=== PATIENT | female | born 1990 | race Caucasian/White ===

== ENCOUNTER → 2016-12-10 | Outpatient (CLI) | payer OTHER ==
[2016-12-10 14:53] LABS: URINE APPEARANCE CLEAR (CLEAR); URINE BILIRUBIN NEG (NEG); URINE COLOR DK YELLOW; URINE NITRITE NEG (NEG); URINE PH 7.5 (4.5-7.5); URINE SPECIFIC GRAVITY 1.026 (1.000-1.030); UROBILINOGEN NEG (NEG)
[2016-12-10 15:12] LABS: MANUAL MICROSCOPIC REQUIRED? NO; REVIEW REQ? NO
== END | disposition home or self-care (01) ==
LOC: C.LABSPEC 13:48
PROVIDERS: ATTEND Obstetrics & Gynecology
DX: Z34.91 Encounter for supervision of normal pregnancy, unspecified, first trimester (principal)

== ENCOUNTER → 2016-12-18 | Outpatient (CLI) | payer OTHER | END | disposition home or self-care (01) | LOC: C.PAPS 10:07 | PROVIDERS: ATTEND Obstetrics & Gynecology | DX: Z34.91 Encounter for supervision of normal pregnancy, unspecified, first trimester (principal) ==

== ENCOUNTER → 2016-12-18 | Outpatient (CLI) | payer OTHER ==
[2016-12-18 17:57] LABS: BASO % 0.1 %; BASO ABS # 0.01 K/uL (0-0.2); COMPLETE YES; EOS % 0.9 %; HEMATOCRIT 36.7 % (37-47); IG% 0.1 %; LYMPH % 22.6 %; LYMPH ABS # 1.68 K/uL (1.2-3.4); MEAN CELL VOLUME 88.4 fL (80-100); MEAN CORPUSCULAR HEMOGLOBIN 30.4 pg (25-34); MEAN CORPUSCULAR HGB CONC 34.3 g/dl (32-36); MEAN PLATELET VOLUME 10.4 fL (7.4-10.4); MONO % 7.3 %; PLATELET COUNT 220 K/uL (130-400); RED BLOOD COUNT 4.15 M/uL (4.2-5.4); WHITE BLOOD COUNT 7.42 K/uL (4.8-10.8)
[2016-12-22 05:51] LABS: CHLAMYDIA TRACH RNA*** NOT DETECTED (NOT DETECTED); GC (NEIS GONORRHOEAE)RNA** NOT DETECTED (NOT DETECTED)
== END | disposition home or self-care (01) ==
LOC: C.LAB1850 15:28
PROVIDERS: ATTEND Obstetrics & Gynecology
DX: Z34.91 Encounter for supervision of normal pregnancy, unspecified, first trimester (principal)

== ENCOUNTER → 2017-01-27 | Outpatient (CLI) | payer OTHER ==
[2017-01-27 19:52] LABS: GTGD 50 Grams
== END | disposition home or self-care (01) ==
LOC: C.LAB1850 14:23
PROVIDERS: ATTEND Obstetrics & Gynecology
DX: Z34.92 Encounter for supervision of normal pregnancy, unspecified, second trimester (principal)

== ENCOUNTER → 2017-04-20 | Outpatient (CLI) | payer OTHER ==
[2017-04-20 18:16] LABS: URINE APPEARANCE CLEAR (CLEAR); URINE BILIRUBIN NEG (NEG); URINE COLOR YELLOW; URINE EPITHELIAL CELL AUTO >30 /lpf (0-5); URINE NITRITE NEG (NEG); URINE PH 6.5 (4.5-7.5); URINE SPECIFIC GRAVITY 1.019 (1.000-1.030); UROBILINOGEN NEG (NEG)
[2017-04-20 18:17] LABS: MANUAL MICROSCOPIC REQUIRED? NO; REVIEW REQ? NO
== END | disposition home or self-care (01) ==
LOC: C.LABSPEC 17:38
PROVIDERS: ATTEND Obstetrics & Gynecology
DX: Z34.93 Encounter for supervision of normal pregnancy, unspecified, third trimester (principal)

== ENCOUNTER → 2017-05-07 | Outpatient (CLI) | payer BC, OTHER ==
[~2017-05-07] MED LIST: PREN-63; RANI150T3 PO
[2017-05-07 16:33] LABS: HEMATOCRIT 33.8 % (37-47); HEMOGLOBIN 11.4 g/dL (12.0-16.0)
== END | disposition home or self-care (01) ==
LOC: C.LAB1850 14:26
PROVIDERS: ATTEND Obstetrics & Gynecology
DX: Z34.93 Encounter for supervision of normal pregnancy, unspecified, third trimester (principal)

== ENCOUNTER → 2017-06-15 | Outpatient (CLI) | payer BC | END | disposition home or self-care (01) | LOC: C.LABSPEC 13:24 | PROVIDERS: ATTEND Obstetrics & Gynecology | DX: Z34.83 Encounter for supervision of other normal pregnancy, third trimester (principal) ==

== ENCOUNTER 2017-07-11 21:54 | Inpatient (IN) | payer BC ==
[~2017-07-11] VITALS: Ht 162.6 cm; Wt 98.6 kg
[2017-07-20] MEDS ORDERED: LACTATED RINGER'S 1000ML 1,000 ML IV PRN (08:07)
[2017-07-20] MEDS ORDERED: LACTATED RINGER'S 1000ML 500 ML IV PRN ×2 (08:09→11:28)
[2017-07-20] MEDS ORDERED: RANI150T3 PO (08:14)
[2017-07-20] MEDS ORDERED: PREN-63 (08:14)
[2017-07-20] MEDS ORDERED: OXYTOCIN 30 UNITS/500ML NSS IV PRN ×2 (08:15→15:00)
[2017-07-20 08:16] VITALS: Ht 162.6 cm; Wt 98.6 kg
[2017-07-20] MEDS: LACTATED RINGER'S 1000ML 1,000 ML IV SCH ×3 (08:29→12:24)
[2017-07-20 08:38] LABS: HEMATOCRIT 33.2 % (37-47); HEMOGLOBIN 11.5 g/dL (12.0-16.0); MEAN CELL VOLUME 87.1 fL (80-100); MEAN CORPUSCULAR HEMOGLOBIN 30.2 pg (25-34); MEAN CORPUSCULAR HGB CONC 34.6 g/dl (32-36); MEAN PLATELET VOLUME 10.4 fL (7.4-10.4); PLATELET COUNT 193 K/uL (130-400); RED CELL DISTRIBUTION WIDTH CV 13.4 % (11.5-14.5); RED CELL DISTRIBUTION WIDTH SD 42.9 fL (36.4-46.3); WHITE BLOOD COUNT 9.05 K/uL (4.8-10.8)
[2017-07-20] MEDS ORDERED: BUPIVACAINE 0.25% 30 ML VIAL ONE (10:36)
[2017-07-20] MEDS ORDERED: EpHEDrine SULFATE INJ 50 MG/ML AMP ONE (10:37)
[2017-07-20] MEDS ORDERED: FENTANYL CITRATE INJ 50 MCG/1 ML 2 ML VIAL ONE (10:37)
[2017-07-20] MEDS ORDERED: FENTANYL 2MCG/ML ROPIV 1.25MG/ML 100ML BAG EPI ONE (10:37)
[2017-07-20] MEDS ORDERED: NALOXONE HCL INJ 1 MG in SODIUM CHLORIDE 0.9% 1000ML 1,000 ML IV PRN ×4 (11:28)
[2017-07-20] MEDS ORDERED: PROMETHAZINE HCL INJ 25 MG in SODIUM CHLORIDE 0.9% 50ML 50 ML IV PRN (11:30)
[2017-07-20] MEDS ORDERED: ONDANSETRON INJ 2 MG/ML 2 ML VIAL IV PRN (11:30)
[2017-07-20] MEDS ORDERED: EpHEDrine SULFATE INJ 50 MG/ML AMP IV PRN (11:30)
[2017-07-20] MEDS ORDERED: NALOXONE HCL INJ 0.4 MG/1 ML VIAL/CARP IV PRN (11:30)
[2017-07-20] MEDS ORDERED: FENTANYL 2MCG/ML ROPIV 1.25MG/ML 100ML BAG EPI PRN (11:30)
[2017-07-20] MEDS ORDERED: NALBUPHINE HCL INJ 10 MG/ML AMP IV PRN (11:30)
[2017-07-20] MEDS ORDERED: METOCLOPRAMIDE HCL INJ 20 MG in SODIUM CHLORIDE 0.9% 50ML 50 ML IV PRN (11:30)
[2017-07-20] MEDS ORDERED: DiphenhydrAMINE HCL 50 MG/ML VIAL IV PRN (11:30)
[2017-07-20] MEDS ORDERED: BENZOCAINE 20% AER SPR 82.5 GM CAN EXT PRN (15:00)
[2017-07-20] MEDS ORDERED: ACETAMINOPHEN 325 MG TAB PO PRN (15:00)
[2017-07-20] MEDS ORDERED: DIPHTHERIA/TETANUS/PERTUSSIS 0.5 ML SYR/VIAL IM. ONE (15:00)
[2017-07-20] MEDS ORDERED: LANOLIN OINT EXT PRN (15:00)
[2017-07-20] MEDS ORDERED: VARICELLA VIRUS VACCINE LIVE 1 VIAL SQ. ONE (15:00)
[2017-07-20] MEDS ORDERED: HYDROCORTISONE ACETATE 25 MG SUPP PR PRN (15:00)
[2017-07-20] MEDS ORDERED: IBUPROFEN 600 MG TAB PO PRN (15:00)
[2017-07-20] MEDS ORDERED: ACETAMINOPHEN/CODEINE 300/30MG TAB PO PRN ×2 (15:00)
[2017-07-20] MEDS ORDERED: SUPERCREAM 0.870 % 15GM JAR EXT PRN (15:00)
--- NOTE | 2017-07-20 15:03 | DELIVERY SUMMARY ---
DATE OF OPERATION: 07/20/2017 FINDINGS: Viable female with Apgars of 8 and 9. Baby delivered over a midline second degree laceration. Arterial and venous cord gases pending. Nuchal cord x2 reduced on the perineum. Cord gases and cord blood samples obtained. Placenta delivered spontaneously. Laceration repaired with interrupted 4-0 Vicryl. ESTIMATED BLOOD LOSS: 300 mL. LABOR NOTE: The patient is a 27-year-old 2, para 1 with an EDC of 11 July at 41 plus weeks gestational age, who was admitted today for a postdates induction. The patient then had a benign course. Blood type 0+, antibody negative, rubella immune, hepatitis B negative. She had normal Glucola x2 and a negative third trimester beta strep culture. Upon admission, the patient was 2-3 cm dilated, 50% effaced and minus 2 station. Tracing was category 1. The patient was started on Pitocin per induction protocol. Artificial rupture of membranes with clear fluid. Following this, the patient began to contract in a regular fashion. She became uncomfortable. Anesthesia was consulted and an epidural was placed. Tracing was category 2 with some decelerations with contractions, but good variability and accelerations. The patient progressed to full dilatation, but she had no sensation to push. Her epidural was markedly decreased and then an hour later, she began her second stage, she pushed for approximately 10 minutes delivering the viable female . Nuchal cord x2 reduced on the perineum. Baby was delivered. Cord was clamped and cut. Cord gases and cord blood samples obtained. Placenta delivered spontaneously. Midline laceration was repaired with interrupted 4-0 Vicryl figure of eight sutures x2. Estimated blood loss was 300 mL. I attest to the content of the Intraoperative Record and any orders documented therein. Any exception s are noted below.
--- NOTE | 2017-07-20 17:08 | Anesthesia Procedure Note ---
Anesthesia Epidural Removal Nt Date & Time Jul 20, 2017 at 17:08 Notes Mental Status: alert / awake / arousable, participated in evaluation Nausea / Vomiting: adequately controlled Pain: adequately controlled Airway Patency, RR, SpO2: stable & adequate BP & HR: stable & adequate Hydration State: stable & adequate Neuraxial Anesthesia: was administered Anesthetic Complications: no major complications apparent, pt satisfied with anesthetic care Epidural: removed without complications, with tip intact
[2017-07-20 18:00] VITALS: BP 104/64; PULSE 97; TEMP 37.7; O2SAT 100
[2017-07-20] MEDS ORDERED: RANITIDINE HCL 150 MG TAB PO SCH (20:00)
[2017-07-20 20:30] VITALS: BP 106/65; PULSE 92; TEMP 36.4; O2SAT 100
[2017-07-20] MEDS: DOCUSATE SODIUM 100 MG CAP PO SCH (20:34)
[2017-07-20 23:20] VITALS: BP 111/64; PULSE 91; TEMP 36.6; O2SAT 99
[2017-07-21 03:15] VITALS: BP 118/70; PULSE 72; TEMP 36.5; O2SAT 99
--- NOTE | 2017-07-21 06:41 | Progress Note ---
Subjective Jul 21, 2017. Subjective conversation w/ patient, physical exam Ambulation: ambulating normally Voiding: no voiding problems Passing Gas: Yes Diet Tolerance: Regular Diet Lochia: Moderate Feeding Type: Breast Feeding Pain: 2/10, well controlled Comment: pt seen and assessed at bedside today; no acute events overnight Review of Systems Constitutional: No fever, No chills Respiratory: No cough, No shortness of breath Cardiac: No chest pain, No edema Abdomen: No nausea, No vomiting Female : No dysuria no headaches or calf pain Objective Vital Signs Date Time Temp Pulse Resp B/P (MAP) Pulse Ox O2 Delivery O2 Flow Rate FiO2 07/21/17 03:15 36.5 72 18 118/70 (86) 99 Room Air 07/20/17 23:20 99 Room Air 07/20/17 23:20 36.6 91 18 111/64 (80) 99 Room Air 07/20/17 20:30 36.4 92 18 106/65 (79) 100 Room Air 07/20/17 18:00 37.7 97 18 104/64 (77) 100 Room Air 07/20/17 18:00 Room Air Physical Exam General Appearance: WELL-APPEARING, WD/WN, NO APPARENT DISTRESS Respiratory/Chest: chest non-tender, lungs clear, normal breath sounds Cardiovascular: regular rate, rhythm, no edema, no murmur Abdomen: normal bowel sounds, non tender, soft Fundus: Firm, Non-Tender, Relation to Umbilicus (3-4 below) Extremities: normal range of motion, non-tender, normal inspection, no pedal edema, no calf tenderness Laboratory Results Last 24 Hours Test 07/20/17 08:22 07/21/17 04:44 White Blood Count 9.05 K/uL Red Blood Count 3.81 M/uL Hemoglobin 11.5 g/dL Hematocrit 33.2 % Mean Corpuscular Volume 87.1 fL Mean Corpuscular Hemoglobin 30.2 pg Mean Corpuscular Hemoglobin Concent 34.6 g/dl RDW Standard Deviation 42.9 fL RDW Coefficient of Variation 13.4 % Platelet Count 193 K/uL Mean Platelet Volume 10.4 fL Medications Current Inpatient Medications Medications (Trade) Dose Ordered Sig/Zac Route Start Time Stop Time Status Last Admin Dose Admin Oxytocin (Pitocin IV) 30 units UD PRN IV 07/20/17 15:00 08/19/17 14:59 Benzocaine (Dermoplast Aero Spr) 1 appln PRN PRN EXT 07/20/17 15:00 08/19/17 14:59 07/20/17 20:56 82.5 APPLN Cocaine HCl (Supercream 0.870% Cr) BID PRN EXT 07/20/17 15:00 08/03/17 14:59 07/20/17 21:47 15 GM Hydrocortisone Acetate (Anusol Hc Supp) 25 mg BID PRN TX 07/20/17 15:00 08/19/17 14:59 Lanolin (Lanolin Oint) PRN PRN EXT 07/20/17 15:00 08/19/17 14:59 Prenat Multivit/ Chair Caner/Iron/Folic Ac ( Vitamin Tab) 1 tab DAILY PO 07/21/17 08:00 08/20/17 07:59 Ibuprofen (Motrin Tab) 600 mg Q4H PRN PO 07/20/17 15:00 08/19/17 14:59 07/20/17 23:06 600 MG Acetaminophen (Tylenol Tab) 650 mg Q6H PRN PO 07/20/17 15:00 08/19/17 14:59 Acetaminophen/ Codeine Phosphate (Tylenol w/ Codeine #3 Tab) 1 tab Q4H PRN PO 07/20/17 15:00 08/19/17 14:59 Acetaminophen/ Codeine Phosphate (Tylenol w/ Codeine #3 Tab) 2 tab Q4H PRN PO 07/20/17 15:00 08/19/17 14:59 Docusate Sodium (coLACE CAP) 100 mg BID PO 07/20/17 20:00 08/19/17 19:59 07/20/17 20:34 100 MG Ferrous Sulfate (Feosol Tab) 325 mg DAILY PO 07/21/17 08:00 08/20/17 07:59 Ranitidine HCl (zANTac TAB) 150 mg BID PO 07/20/17 20:00 08/19/17 19:59 07/20/17 20:34 150 MG Assessment and Plan Post- Day#: 1 Continue Routine Care: 27yo F PPD s/p pt doing well clinically Continue routine care Encourage ambulation and breast feeding Pain control prn Pt eager for discharge Discharge instructions reviewed in event she goes home today Resident Physician Supervision Note: I interviewed and examined the patient. Discussed with Dr. Worley and agree with findings and plan as documented in the note. Any exceptions or clarifications are listed here: Pt desires d/c, instructions given Documented By: Kana Dyer Resident Tracking Resident Involvement: Resident Care Provided Care Provided: OB Delivery
--- NOTE | 2017-07-21 06:42 | Discharge Instructions ---
Discharge Instructions Date of Service Jul 21, 2017. Admission Reason for Admission: Induction Discharge Discharge Diagnosis / Problem: s/p Discharge Goals Goal(s): Routine recovery after delivery Medications Continue Dispensed Medications: supercream, dermaplast, tucks, lansinoh Activity Recommendations Activity Limitations: per Instructions/Follow-up section . Instructions / Follow-Up Instructions / Follow-Up ACTIVITY RECOMMENDATIONS: * Gradual return to full activity over the next 2-3 weeks. * No lifting - nothing heavier than baby over the next 2-3 weeks. * Do not engage in vigorous exercise, sexual activity or sports until cleared by your physician. * Do not drive or operate any motorized equipment until cleared by your physician. * You may shower/bathe daily. MEDICATIONS: For discomfort or pain, you may use Acetaminophen (Tylenol), Ibuprofen (Advil), or Naproxen (Aleve) following the package directions. For constipation you may use Colace following the package directions. BREAST CARE: If you are not breast feeding: * Wear a supportive bra 24 hours a day for one to two weeks. * Avoid stimulating your breasts and nipples as much as possible during the first few weeks after delivery. * When taking a shower, have the warm water hit your back, not breasts. * When your breasts feel full, apply ice packs. Usually three to four times a day helps ease the discomfort. * Take a mild pain medication (Tylenol / Motrin) when you are uncomfortable. If breast feeding: * Use breast milk to lubricate nipples. Lansinoh cream may be used for sore nipples. You do not need to remove cream prior to breast feeding. If using a different brand of cream, check the label for directions regarding removal of cream prior to nursing. * Wear a supportive bra. * If having problems with breasts or breast feeding, call a bridal stylist sales consultant or your health care provider. EPISIOTOMY CARE: After delivery, if you have an episiotomy (stitches), the following steps will ease discomfort and aid healing. * For the first 24 hours after delivery, place ice packs next to your episiotomy to help reduce swelling. * After the first 24 hour-period, sitz baths, either portable or in the tub, are suggested. A shower with a shower arm sprayed over the episiotomy may be comforting. * Joanne care should be done after each voiding and bowel movement. Squirt warm water from a plastic bottle over the perineum (region of the body between the anus and urinary opening) and pat dry. * Use Dermoplast to ease discomfort. Shake container. [place] directly over the episiotomy. Place a Tucks on a clean sanitary pad next to your episiotomy. SPECIAL CARE INSTRUCTIONS: When you are discharged from the hospital, it is important for you to follow the instructions listed below: * During the first week at home, you should be able to care for yourself and your baby. In addition, the usual light household activities are encouraged. * Limit your activities to the way you feel. Do not try to clean the house or move furniture. Be sensible. * If you actively engage in sports and have done so up until the time of your delivery, you may resume these activities as soon as you feel able. This may take up to one month or even longer. Use good judgment. * Continue to take your vitamins for at least six weeks after the of your baby. * Your diet need not be limited unless you were on a special diet before your delivery. Breast-feeding mothers need around 2500 calories per day and at least 64-80 ounces of fluid per day (8 to 10 glasses). * You should eat foods from the four major food groups. Crash diets or fad diets are to be avoided. Eating lean meats, fresh fruits and vegetables, low-fat dairy products, high fiber foods and a regular exercise program, will help you get back to your pre- weight without putting your health at risk. * Constipation is sometimes a problem after delivery. Take a mild laxative as needed. If breast feeding, Milk of Magnesia is acceptable to use. You may use a suppository or Fleets enema if no episiotomy. * A daily shower or tub bath is suggested. Be sure to thoroughly and gently dry the perineum. * A bloody vaginal discharge will usually continue until around four weeks post . A small amount of bleeding may continue for as long as six weeks. Vaginal discharge changes from the bright red bleeding after delivery to pink then brownish and finally yellowish-pink before becoming white and disappearing. * Bleeding may increase with activity. Your first period may come in 4-8 weeks. If you are breast feeding, your period may be delayed even longer. * [place] (sex) can begin whenever both you and your partner feel comfortable and do not have any form of genital infection. It is recommended that you wait at least six weeks for internal and external healing to occur. If you have questions, please talk to your health care practitioner. A condom should be used to prevent infection and . * Foreplay, gentle intercourse and lubrication is very important the first several times to prevent pain. A water-based lubricant such as K-Y jelly or Astroglide may be used. * If you have RH negative blood and your baby is RH positive, you will receive RHOGAM by injection prior to discharge. The nurse will give you a card to keep with you that has the date and place that you received RHOGAM after delivery. * During your care, you had a Rubella screen done to check for the presence of rubella antibodies in your blood. If your test was negative, you will receive a Rubella vaccine prior to discharge. This vaccine may cause a fever, soreness at the injection site and flu-like symptoms. If these symptoms persist, notify your health care practitioner. is not advised for one month after a Rubella vaccine. * Verbalizes understanding of car seat law as reviewed with patient nursing. * Car Seat hand-out given and reviewed with patient by nursing. * Shaken baby information reviewed with patient by nursing. Call you doctor if: * Heavy bleeding (saturating several pads an hour) or passing clots the size of your fist. * A fever >101 degrees F (38.3 degrees C) on two occasions four hours apart and /or chills. * Unusual pain in the pelvic or vaginal areas. * "Baby Blues" lasting longer than two weeks. If you have any questions or concerns, call your health care practitioner at . FOLLOW UP VISIT: * Please call the office at to schedule a 6 week examination. It is important you keep this appointment. It is important for you to make arrangements for either yearly or twice yearly check-ups thereafter. Current Hospital Diet Patient's current hospital diet: Regular OB Diet Discharge Diet Recommended Diet: Regular OB Diet Pending Studies Studies pending at discharge: no Medical Emergencies . Who to Call and When: Medical Emergencies: If at any time you feel your situation is an emergency, please call [phone] immediately. . Non-Emergent Contact Non-Emergency issues call your: Electrostatic Powder Coating Technician . . "Provider Documentation" section prepared by Neha Worley. .
[2017-07-21 07:04] VITALS: BP 103/64; PULSE 86; TEMP 36.7; O2SAT 98
[2017-07-21 07:37] LABS: HEMATOCRIT 30.8 % (37-47); HEMOGLOBIN 10.3 g/dL (12.0-16.0)
[2017-07-21] MEDS ORDERED: PRENATAL VITAMIN TAB PO SCH (08:00)
[2017-07-21] MEDS ORDERED: FERROUS SULFATE 325 MG TAB PO SCH (08:00)
[2017-07-21] MEDS: DOCUSATE SODIUM 100 MG CAP PO SCH (08:18)
[2017-07-21 12:10] VITALS: BP 116/75; PULSE 77; TEMP 36.7
[2017-07-21 15:10] VITALS: BP 106/70; PULSE 83; TEMP 36.5
[2017-07-21 17:20] VITALS: BP_DIAS 70; PULSE 83; TEMP 36.5
== END 2017-07-21 17:20 | disposition home or self-care (01) | DRG 775 ==
LOC: C.LD 07-20 07:32 → C.OBG 07-20 17:59
PROVIDERS: ADMIT Obstetrics & Gynecology; ATTEND Obstetrics & Gynecology
PROC: 3E033VJ Introduction of Other Hormone into Peripheral Vein, Percutaneous Approach (ICD-10-PCS; principal; 2017-07-20)
PROC: 10E0XZZ Delivery of Products of Conception, External Approach (ICD-10-PCS; principal; 2017-07-20)
PROC: 0KQM0ZZ Repair Perineum Muscle, Open Approach (ICD-10-PCS; principal; 2017-07-20)
PROC: 10907ZC Drainage of Amniotic Fluid, Therapeutic from Products of Conception, Via Natural or Artificial Opening (ICD-10-PCS; principal; 2017-07-20)
DX: O48.0 Post-term pregnancy (principal); O70.1 Second degree perineal laceration during delivery; O76 Abnormality in fetal heart rate and rhythm complicating labor and delivery; O69.81X0 Labor and delivery complicated by cord around neck, without compression, not applicable or unspecified; O99.62 Diseases of the digestive system complicating childbirth; K21.9 Gastro-esophageal reflux disease without esophagitis; Z37.0 Single live birth; Z3A.41 41 weeks gestation of pregnancy; Z79.899 Other long term (current) drug therapy

== ENCOUNTER 2019-12-22 07:38 | Inpatient (IN) ==
[2019-12-22] MEDS ORDERED: OXYTOCIN 30 UNITS/500 ML BAG IV PRN ×2 (07:52)
[2019-12-22] MEDS ORDERED: PENICILLIN G POTASSIUM 6 MU in DEXTROSE 5% 250 ML IV STA (07:54)
--- NOTE | 2019-12-22 08:04 | Labor Progress Brief Note ---
Date of Service December 22, 2019 Subjective Crampy overnight. SROM occurred here in the room just minutes ago! Clear fluid. +FM Assessment & Plan (1) Prolonged , antepartum: GBS positive, induction of labor with pitocin. (2) Carrier of group B Streptococcus: Admission and Anticipated Discharge Date Admission Date: December 22, 2019 Physical Exam Physical Exam: 350/-2 soft post SROM copious clear. FHT Cat 1 Jessie quiet Results & Data ([facility]) Vital Signs (Past 12 Hours) Vital Signs Pulse BP 12/22/19 07:50 113 H 121/75 Coding Level of Care Code None Diagnoses Prolonged , antepartum O48.1 Carrier of group B Streptococcus Z22.330
[2019-12-22 08:16] LABS: Hematocrit (blood only) 31.9 % (37-47); Hemoglobin 10.7 g/dL (12.0-16.0); Mean Corpuscular Hemoglobin 30.1 pg (25-34); Mean Corpuscular Volume 89.6 fL (80-100); Platelet Count 203 K/uL (130-400); RDW Coefficient of Variation 13.2 % (11.5-14.5); RDW Standard Deviation 43.3 fL (36.4-46.3); Red Blood Count 3.56 M/uL (4.2-5.4); White Blood Count 10.55 K/uL (4.8-10.8)
[2019-12-22] MEDS: LACTATED RINGER'S 1,000 ML IV PRN ×2 (08:23→10:32)
[2019-12-22 08:24] LABS: Mean Corpuscular Hgb Conc 33.5 g/dL (32-36)
--- NOTE | 2019-12-22 08:36 | History & Physical Report ---
Date of Service December 22, 2019 Assessment & Plan (1) Encounter for induction of labor: PNL: Rh pos, RI, GBS + carrier status, COVID neg Admit, labs, start IV Epidural when desired; anesthesiology consult placed Proceed with induction of labor per Pitocin augmentation protocol. Anticipate (2) Carrier of group B Streptococcus: Will start penicillin IV for GBS carrier status Admission and Anticipated Discharge Date Admission Date: December 22, 2019 History of Present Illness Primary Care Provider: Shannan Ferraro DO Ursula De La Cruz is a 29 y/o female currently at 41 WGA with an SIMONA 12/15/19 as determined by LMP who is here for IOL due to postdates. Her was essentially uncomplicated; pt is GBS carrier (determined by urine culture). It is noted that upon arrival, pt went to the bathroom and then was getting into bed when she had spontaneous rom. + irregular contractions; + movement; + bloody show Had regular appointments with OB. Blood type: O+ Antibody screen: neg Labs 05/27/19 Rubella: immune VDRL/RPR: NR Gonorrhea: neg Chlamydia: neg HIV: neg HbSAg: neg GBS + CARRIER STATUS per urine culture COVID-19 negative 12/02/19, repeat negative 12/14/19 Other screens: panorama/cf/sma/quad declined Allergies Allergy/AdvReac Type Severity Reaction Status Date / Time No Known Allergies Allergy Verified 12/21/19 13:58 Home Medications Home Medications Medication Instructions Recorded Confirmed Type [id number] 1 tab PO DAILY 12/15/19 12/22/19 History [ 1 + Iron] Patient History Medical History History of varicella Prolonged , antepartum Surgical History S/P cholecystectomy Family History Grandfather (Paternal) Cardiac disorder Grandmother (Paternal) Cardiac disorder Father Hypertension Hypercholesterolemia Other Thyroid disease Social History (Updated 05/20/19 @ 11:15 by Elisa Duncan) Smoking Status: Never smoker Hx Alcohol Use: No Hx Substance Use: No Preferred Language: Kiswahili Beliefs That Will Affect Care: None marital status: marital status details: Kuldip De La Cruz (29) [phone] Current Living Situation: Family Current Living Situation Comment: and 2 children current occupational status: employed current occupation: RN [employer] Other Information That Helps Us Care for You: No Feels Safe at Home: Yes Safety Concerns: Feels Safe At This Time OB History G#1: Delivered at term on 12/16/14, male, 8#5oz., [facility] G[facility]2: Delivered at 41 weeks on 07/20/18, female, 8#8oz, with epidural at [facility] with Dr. Dyer Review of Systems Denies fever or chills. Denies shortness of breath or cough. Denies chest pain. Denies breast pain. + nausea (persistent throughout ) Denies dysuria or hematuria. Denies leg pain or leg swelling. Denies headache or changes in vision. Physical Exam Physical Exam: General: Alert, oriented. No acute distress. Cardiac: Regular rate and rhythm, no murmurs/rubs/gallops. Respiratory: Clear to auscultation bilaterally a/p, no wheezes/rales/rhonchi. No increased work of breathing. Symmetrical chest rise. No respiratory distress. Abdomen: Gravid. Vertex position. + heart tones. - palpable contractions. EFW 7-8# Pelvic: Dilation 3cm; Effacement 50%; Station -2, soft, posterior per Dr. Canales External FHT and external uterine monitors used; Category I tracing; moderate FHT variability. Lower Extremities: No lower extremity edema or swelling. No deep calf pain. Steven's negative bilaterally Results & Data ([facility]) Vital Signs (Past 12 Hours) Vital Signs Temp Pulse Resp BP 12/22/19 08:29 87 114/64 12/22/19 07:52 37.0 C 20 12/22/19 07:50 113 H 121/75 Laboratory Results Labs at admission today at 0803 H.7 Hct: 31.9 WBC: 10.55 Plt: 203 Code Status & VTE Plan VTE Prophylaxis Plan VTE Prophylaxis will be ordered: Yes
[2019-12-22] MEDS ORDERED: BUPIVACAINE 0.25% 30 ML VIAL ONE (09:41)
[2019-12-22] MEDS ORDERED: ePHEDrine sulfate 50 MG/ML AMP ONE (09:41)
[2019-12-22] MEDS ORDERED: fentaNYL citrate 100 MCG/2 ML VIAL ONE (09:42)
[2019-12-22] MEDS ORDERED: fentaNYL 2MCG/ML ROPIV 1.25MG/ML 100 ML BAG EPI ONE (09:42)
[2019-12-22] MEDS ORDERED: NALOXONE HCL 1 MG in SODIUM CHLORIDE 0.9% 1000ML 1,000 ML IV PRN (09:55)
[2019-12-22] MEDS ORDERED: ePHEDrine sulfate 50 MG/ML AMP IV PRN (09:55)
[2019-12-22] MEDS ORDERED: NALOXONE HCL 0.4 MG/1 ML VIAL/CARP IV PRN (09:55)
[2019-12-22] MEDS ORDERED: DiphenhydrAMINE HCL 50 MG/ML VIAL IV PRN (09:55)
[2019-12-22] MEDS ORDERED: ONDANSETRON INJ 2 MG/ML 2 ML VIAL IV PRN (09:55)
[2019-12-22] MEDS ORDERED: fentaNYL 2MCG/ML ROPIV 1.25MG/ML 100 ML BAG EPI PRN (09:55)
--- NOTE | 2019-12-22 09:59 | Anesthesiology Consultation ---
Date of Service December 22, 2019 Covid 19 negative on 12/14/19. Assessment & Plan Chart Review Chart Review: Patient NOT seen in Pre Admission Testing and Acceptable Risk for Labor Epidural Consults Requested none ASA ASA2 Proposed Anesthesia Anesthesia Type: Labor Epidural and CSE Risk / Benefits Reviewed With: PT / POA / Parent / Guardian, Accepts Plan and Informed Consent Obtained History Height/Weight Height: 5 ft 5 in Weight: 98.883 kg Allergies Allergy/AdvReac Type Severity Reaction Status Date / Time No Known Allergies Allergy Verified 12/21/19 13:58 Medications Home Medications Medication Instructions Recorded Confirmed Last Taken [id number] 1 tab PO DAILY 12/15/19 12/22/19 12/22/19 07:00 [ 1 + Iron] Active Medications Generic Name Dose Route Start Last Admin Trade Name Freq PRN Reason Stop Dose Admin Lactated Ringer's 1,000 mls @ 125 mls/hr 12/22/19 07:52 12/22/19 09:35 Lr IV 12/24/19 07:51 999 mls/hr .Q8H PRN Infusion L&D Protocol Protocol Oxytocin 30 units in 500 mls @ 5 mls/hr 12/22/19 07:52 12/22/19 09:31 Pitocin IV 12/24/19 07:51 0.3 units/hr .Q24H PRN 5 mls/hr Labor Induction/Augmentation Titration Protocol 0.3 UNITS/HR NPO Date Last Intake of Fluids: 12/22/19 Time Last Intake of Fluids: 06:00 Date Last Intake of Solids: 12/22/19 Time Last Intake of Solids: 06:00 Past Medical History Medical History History of varicella Prolonged , antepartum Exercise / Class Metabolic Activity II 4-5 Yardwork/Stairs/Walk up hill Past Family History Family History Grandfather (Paternal) Cardiac disorder Grandmother (Paternal) Cardiac disorder Father Hypertension Hypercholesterolemia Other Thyroid disease Past Surgical History Surgical History S/P cholecystectomy Past Anesthesia History No Hx of Anesthesia Complications and No Family Hx of Anesthesia Complications History of PONV No Hx of PONV and No Hx of Motion Sickness Social History Smoking Status: Never smoker Hx Alcohol Use: No Hx Substance Use: No Review of Systems no chest pain or sob Physical Exam Vital Signs Last Vital Signs Temp 37.0 C 12/22/19 07:52 Pulse 89 12/22/19 09:55 Resp 20 12/22/19 07:52 BP 124/85 12/22/19 09:55 Pulse Ox 98 12/22/19 09:55 ENMT Mouth: no TMJ abnormality Thyromental Distance: > or= 3.5 Finger Breadths Mallampati Class: II Neck normal visual inspection Respiratory normal respiratory effort Auscultation: lungs clear to auscultation bilaterally Cardiovascular Rate/Rhythm: regular rate and regular rhythm Musculoskeletal Spine: normal cervical ROM Neurologic moves all extremities Psychiatric Orientation: alert and oriented x 3 Testing Laboratory Results 12/22/19 08:03
[2019-12-22] MEDS ORDERED: ACETAMINOPHEN 325 MG TAB PO PRN (11:39)
--- NOTE | 2019-12-22 11:40 | Delivery Summary ---
Vaginal Delivery Summary Date of Service December 22, 2019 Vaginal Delivery Summary DIAGNOSES: 1. [place] intrauterine at 41w0d gestation. 2. Induction of labor. 3. Group B Streptococcus Pos. PROCEDURE: Spontaneous vaginal delivery and repair of laceration. SURGEON: Abigail Canales MD. DAIRY POWDER MIXER OPERATOR: None. ESTIMATED BLOOD LOSS: 250 mL. COMPLICATIONS: None. PLACENTA: Spontaneous and intact with a 3-vessel cord. DISPOSITION: Stable to labor and delivery. DESCRIPTION: The patient pushed well and brought the head to in OA position. The 's head was allowed to deliver with contraction force and no further active pushing, with the perineum protected during this time. The shoulders delivered easily with a maternal pushing effort. There was no nuchal cord. The right shoulder was anterior. The shoulders and body delivered without any difficulty, and the infant was placed on the maternal abdomen. It was vigorous and moving all extremities, and making respiratory efforts. The cord was doubly clamped by the MD and then cut by the FOB. The placenta delivered spontaneously and was noted to be intact and with a 3VC. The cervix, vagina and perineum were examined and were found to be without defect requiring repair. The fundus was firm and lochia minimal immediately after delivery.
[2019-12-22] MEDS ORDERED: PENICILLIN G POTASSIUM 3 MU in DEXTROSE 5% 100 ML IV PRN (12:00)
[2019-12-22] MEDS ORDERED: OXYCODONE/ACETAMINOPHEN 5mg/325mg TAB PO PRN (12:12)
[2019-12-22] MEDS ORDERED: HYDROCORTISONE ACETATE 25 MG SUPP PR PRN (12:12)
[2019-12-22] MEDS ORDERED: DIPHTHERIA/TETANUS/PERTUSSIS 0.5 ML SYR/VIAL IM ONE (12:12)
[2019-12-22] MEDS ORDERED: SUPERCREAM 0.870% 15 GM JAR EXT PRN (12:12)
[2019-12-22] MEDS ORDERED: BENZOCAINE 20% AER SPR 82.5 GM CAN EXT PRN (12:12)
[2019-12-22] MEDS ORDERED: bisacodyL 10 MG SUPP PR PRN (12:12)
[2019-12-22] MEDS: IBUPROFEN 600 MG TAB PO PRN ×2 (13:13→17:50)
--- NOTE | 2019-12-22 13:16 | Anesthesia Procedure Note ---
Date of Service December 22, 2019 Anesthesia Post Epidural Note Vital Signs Vital Signs: Temp Pulse Resp BP Pulse Ox 36.9 C 64 20 130/63 98 12/22/19 10:31 12/22/19 13:04 12/22/19 11:46 12/22/19 13:04 12/22/19 11:20 Notes Mental Status: alert / awake / arousable and participated in evaluation Nausea / Vomiting: adequately controlled Pain: adequately controlled Airway Patency, RR, SpO2: stable & adequate BP & HR: stable & adequate Hydration State: stable & adequate Neuraxial Anesthesia: was administered and sensory block is resolving Anesthetic Complications: no major complications apparent and Pt Satisfied with anesthetic care Epidural: Removed without complications and With tip intact
[2019-12-22] MEDS ORDERED: OXYTOCIN 20 UNITS in LACTATED RINGER'S 1,000 ML IV SCH (14:15)
[2019-12-22] MEDS: DOCUSATE SODIUM 100 MG CAP PO SCH (21:10)
--- NOTE | 2019-12-23 06:15 | Obstetrical Progress Note ---
Date of Service <Shannan Malave DO - Last Filed: 12/23/19 07:32> December 23, 2019 Assessment & Plan <Shannan Malave DO - Last Filed: 12/23/19 07:32> (1) Normal course: - PNL: Rh pos, RI, GBS + carrier status, COVID neg -- Pt delivered before being adequately treated with penicillin. Will continue to monitor pt for 48 hours post . - Feels well today. Eating well, voiding well, ambulating well. - Pain well controlled with ibuprofen 600mg Q4H PRN - Routine care -- OOB, ambulation, diet progression as tolerated - After discharge will have 6 week follow-up with Dr. Canales. - Plan for d/c home tomorrow. (2) Carrier of group B Streptococcus: see above Subjective <Shannan Malave DO - Last Filed: 12/23/19 07:32> Ursula De La Cruz is a 29 y/o female who is PPD #1 following IOL (due to postdates), epidural, and at 41 weeks. She reports feeling well overall this morning. Minimal abdominal cramping and 0/10 pain well managed on analgesics. Voiding without dysuria or difficulty. Tolerating meals overnight without nausea or vomiting. Patient has been able to ambulate some. - passing gas and - bowel movement. Has persistent lochia with some improvement this morning. Currently . Review of Systems Denies fever or chills. Denies shortness of breath or cough. Denies chest pain. Denies breast pain. Denies dysuria. Denies leg pain or leg swelling. Denies headache or changes in vision. Physical Exam <Shannan Malave DO - Last Filed: 12/23/19 07:32> General: Alert, oriented. No acute distress. Cardiac: Regular rate and rhythm. No murmurs. Respiratory: Clear to auscultation bilaterally a/p, no wheezes/rales/rhonchi. No increased work of breathing. Symmetrical chest rise. No respiratory distress. Abdomen: Soft, nontender, nondistended. Bowel sounds present. Uterus: Uterine fundus firm, palpable 2 cm below umbilicus. Lower Extremities: No lower extremity edema or swelling. No deep calf pain. Steven's negative bilaterally. Results & Data ([facility]) <Shannan Malave DO - Last Filed: 12/23/19 07:32> Vital Signs (Past 12 Hours) Vital Signs Temp Pulse Resp BP Pulse Ox 12/23/19 03:05 37.3 C 70 16 101/65 99 12/22/19 23:40 36.7 C 61 16 101/65 97 12/22/19 19:15 36.8 C 64 18 106/67 Laboratory Results H/H this morning at 0625: 10.2/29.7 <Abigail Canales MD - Last Filed: 12/23/19 07:44> Co-Signing Physician Notes I have reviewed the resident's note and examined the patient myself, and agree with the note above.
[2019-12-23 06:46] LABS: Hematocrit (blood only) 29.7 % (37-47); Hemoglobin 10.2 g/dL (12.0-16.0); Mean Corpuscular Hemoglobin 30.3 pg (25-34); Mean Corpuscular Hgb Conc 34.3 g/dL (32-36); Mean Corpuscular Volume 88.1 fL (80-100); Mean Platelet Volume 10.9 fL (7.4-10.4); Platelet Count 166 K/uL (130-400); RDW Coefficient of Variation 13.1 % (11.5-14.5); RDW Standard Deviation 42.5 fL (36.4-46.3); Red Blood Count 3.37 M/uL (4.2-5.4); White Blood Count 9.24 K/uL (4.8-10.8)
[2019-12-23] MEDS: PRENATAL VITAMIN 1 TAB PO SCH (07:56)
[2019-12-23] MEDS: DOCUSATE SODIUM 100 MG CAP PO SCH ×2 (07:56→20:36)
[2019-12-23] MEDS ORDERED: bisacodyL 5 MG TABEC PO SCH (20:00)
--- NOTE | 2019-12-24 06:41 | Obstetrical Progress Note ---
Date of Service <Shannan Malave DO - Last Filed: 12/24/19 06:41> December 24, 2019 Assessment & Plan <Shannan Malave DO - Last Filed: 12/24/19 06:41> (1) Normal course: - PNL: Rh pos, RI, GBS positive carrier, COVID neg - Feels well today. Eating well, voiding well, ambulating well. - Pain well controlled with ibuprofen 600mg Q4H PRN - Routine care -- OOB, ambulation, diet progression as tolerated - After discharge will have 6 week follow-up with Dr. Canales. - Plan for d/c home today. Subjective <Shannan Malave DO - Last Filed: 12/24/19 06:41> Ursula De La Cruz is a 29 y/o female who is PPD #2 following with epidural after IOL due to postdates at 41 weeks. She reports feeling well overall this morning. Minimal abdominal cramping and 0/10 pain well managed on analgesics. Voiding without dysuria. Tolerating meals overnight without nausea or vomiting. Patient has been able to ambulate some. + passing gas and - bowel movement. Has persistent lochia with some improvement this morning. Currently . Review of Systems Denies fever or chills. Denies shortness of breath or cough. Denies chest pain. Denies breast pain. Denies dysuria. Denies leg pain or leg swelling. Denies headache or changes in vision. Physical Exam <Shannan Malave DO - Last Filed: 12/24/19 06:41> General: Alert, oriented. No acute distress. Cardiac: Regular rate and rhythm. No murmurs. Respiratory: Clear to auscultation bilaterally a/p, no wheezes/rales/rhonchi. No increased work of breathing. Symmetrical chest rise. No respiratory distress. Abdomen: Soft, nontender, nondistended. Bowel sounds present. Uterus: Uterine fundus firm, palpable at umbilicus. Lower Extremities: No lower extremity edema or swelling. No deep calf pain. Steven's negative bilaterally. Results & Data ([facility]) <Shannan Malave DO - Last Filed: 12/24/19 06:41> Vital Signs (Past 12 Hours) Vital Signs Temp Pulse Resp BP 12/24/19 00:01 36.9 C 59 L 18 106/65 12/23/19 19:40 36.9 C 67 18 105/68 <Grace Washburn DO - Last Filed: 12/24/19 08:29> Co-Signing Physician Notes Resident Physician Supervision Note: I was present with Dr. Malave during the history and exam. I discussed the case with the resident and agree with the findings and plan as documented in the note. Any exceptions or clarifications are listed here: PPD#2 doing well, reviewed DC instructions. Documented By: Grace Washburn DO
[2019-12-24 07:08] LABS: Hematocrit (blood only) 31.5 % (37-47); Hemoglobin 10.6 g/dL (12.0-16.0)
[2019-12-24] MEDS: PRENATAL VITAMIN 1 TAB PO SCH (07:39)
[2019-12-24] MEDS: DOCUSATE SODIUM 100 MG CAP PO SCH (07:39)
== END 2019-12-24 09:52 | disposition home or self-care (01) | DRG 807 ==
LOC: 4S1 07:38 → 4S2 14:19